=== PATIENT | male | born 1965 | race Caucasian/White ===

== ENCOUNTER 2017-10-30 18:38 | Emergency (ER) | payer MEDICAID ==
[~2017-10-30] VITALS: Ht 188 cm; Wt 109.5 kg
[2017-10-30 18:50] VITALS: BP 148/95
== END 2017-10-30 20:10 | disposition home or self-care (01) ==
LOC: ED 19:55
DX: E11.65 Type 2 diabetes mellitus with hyperglycemia (principal); Z76.0 Encounter for issue of repeat prescription
CPT/HCPCS: 82962; 99283